=== PATIENT | male | born 1955 | race Caucasian/White ===

== ENCOUNTER 2024-09-06 02:43 | Emergency (ER) | payer OTHER ==
[2024-09-06 03:26] LABS: #Basophils 0.0 thou/uL (0.0-0.2); #Eosinophils 0.2 thou/uL (0.0-0.7); #Lymphocytes 1.6 thou/uL (1.20-3.40); #Monocytes 0.6 thou/uL (0.11-0.59); #Neutrophils 1.7 thou/uL (1.40-6.50); %Basophils 1.0 % (0.0-1.0); %Eosinophils 3.7 % (0.0-10.0); %Lymphocytes 39.8 % (21.0-51.0); %Monocytes 13.3 % (0.0-10.0); %Neutrophils 42.3 % (42.0-75.0); Hematocrit 33.9 % (42.0-52.0); Hemoglobin 10.8 g/dL (14.0-18.0); Mean Corpuscular Hemoglobin 25.4 pg (27.0-31.0); Mean Corpuscular Volume 80.0 fl (78.0-98.0); Platelet Count 179 10x3/uL (130-400); Red Blood Cell (RBC) Count 4.23 mill/uL (4.70-6.10); White Blood Cell (WBC) Count 4.1 10x3/uL (4.8-10.8)
[2024-09-06] MEDS ORDERED: Nitroglycerin 2% Ointment 1 INCH/1 GM Packet ONE (03:26)
[2024-09-06 03:44] LABS: ALT (SGPT) 11 U/L (Less than 45); AST (SGOT) 16 U/L (11-34); Albumin 3.3 g/dL (3.1-4.5); Alkaline Phosphatase 51 U/L (40-110); Anion Gap 12 mmol/L (10-20); BUN (Urea Nitrogen) 21 mg/dL (8.4-25.7); Bilirubin, Total 0.4 mg/dL (0.3-1.2); Calc. Creatinine Clearance 0 mL/min (70-130); Calcium 9.1 mg/dL (7.8-10.44); Carbon Dioxide 22 mmol/L (23-31); Chloride 107 mmol/L (98-107); Globulin 3.9 g/dL (2.4-3.5); Glucose 97 mg/dL (80-115); Potassium 3.7 mmol/L (3.5-5.1); Sodium 137 mmol/L (136-145)
[2024-09-06 03:45] LABS: Troponin I 0.011 ng/mL (< 0.028)
[2024-09-06] MEDS ORDERED: Azithromycin 500 MG VIAL ONE (06:08)
[2024-09-06] MEDS ORDERED: cefTRIAXone (ROCEPHIN) 2 GM VIAL ONE (06:08)
[2024-09-06 06:28] LABS: Glucose, Urine (Dipstick) Negative (Negative); Leukocyte Large (Negative); Protein, Urine (Dipstick) Trace mg/dL (Neg-Trace); Specific Gravity, Urine 1.015 (1.005-1.030)
[2024-09-06 06:34] LABS: Bacteria/HPF 2+ HPF (None Seen); CAUTI Indications for Culture Pelvic or flank pain; RBC/HPF 0-3 HPF (0-3); WBC/HPF Greater than 50 HPF (0-3)
[2024-09-06 06:35] LABS: Urine Culture Reflex Yes Yes
[2024-09-06 07:01] LABS: Troponin I Less than 0.010 ng/mL (< 0.028)
[2024-09-06] MEDS ORDERED: Iopamidol 370 76% 100 ML VIAL ONE (09:00)
== END 2024-09-06 08:30 | disposition short-term general hospital (02) ==
LOC: NAV ERS 02:43
DX: R07.9 Chest pain, unspecified (principal); J18.9 Pneumonia, unspecified organism; D64.9 Anemia, unspecified; N30.00 Acute cystitis without hematuria; K59.00 Constipation, unspecified; K76.0 Fatty (change of) liver, not elsewhere classified; R91.1 Solitary pulmonary nodule; I13.0 Hypertensive heart and chronic kidney disease with heart failure and stage 1 through stage 4 chronic kidney disease, or unspecified chronic kidney disease; N18.9 Chronic kidney disease, unspecified; I50.9 Heart failure, unspecified; J44.9 Chronic obstructive pulmonary disease, unspecified; I25.10 Atherosclerotic heart disease of native coronary artery without angina pectoris; I48.91 Unspecified atrial fibrillation; E78.5 Hyperlipidemia, unspecified; Z21 Asymptomatic human immunodeficiency virus [HIV] infection status; Z79.899 Other long term (current) drug therapy
CPT/HCPCS: 36415; 71045; 71275; 74174; 80053; 81001; 83880; 84484; 85025; 87077; 87086; 93005; 94760; 96365; 96367; 96374; J0456; J0696; J2270; J7050; Q9967

== ENCOUNTER 2024-11-29 00:22 | Emergency (ER) | payer OTHER ==
[2024-11-29] MEDS ORDERED: diphenhydrAMINE 50 MG/ML VIAL ONE (00:47)
[2024-11-29 00:54] LABS: #Basophils 0.0 thou/uL (0.0-0.2); #Eosinophils 0.0 thou/uL (0.0-0.7); #Lymphocytes 1.0 thou/uL (1.20-3.40); #Monocytes 0.3 thou/uL (0.11-0.59); #Neutrophils 3.5 thou/uL (1.40-6.50); %Basophils 0.4 % (0.0-1.0); %Eosinophils 0.0 % (0.0-10.0); %Lymphocytes 20.2 % (21.0-51.0); %Monocytes 6.8 % (0.0-10.0); %Neutrophils 72.5 % (42.0-75.0); Hematocrit 31.5 % (42.0-52.0); Hemoglobin 10.2 g/dL (14.0-18.0); Mean Corpuscular Hemoglobin 25.4 pg (27.0-31.0); Mean Corpuscular Volume 78.6 fl (78.0-98.0); Platelet Count 245 10x3/uL (130-400); Red Blood Cell (RBC) Count 4.00 mill/uL (4.70-6.10); White Blood Cell (WBC) Count 4.8 10x3/uL (4.8-10.8)
[2024-11-29 01:15] LABS: ALT (SGPT) 13 U/L (Less than 45); AST (SGOT) 15 U/L (11-34); Albumin 3.1 g/dL (3.1-4.5); Alkaline Phosphatase 39 U/L (40-110); Anion Gap 18 mmol/L (10-20); BUN (Urea Nitrogen) 22 mg/dL (8.4-25.7); Bilirubin, Total 0.4 mg/dL (0.3-1.2); Calc. Creatinine Clearance 0 mL/min (70-130); Calcium 8.8 mg/dL (7.8-10.44); Carbon Dioxide 18 mmol/L (23-31); Chloride 105 mmol/L (98-107); Globulin 4.1 g/dL (2.4-3.5); Glucose 107 mg/dL (80-115); Potassium 3.8 mmol/L (3.5-5.1); Sodium 137 mmol/L (136-145)
[2024-11-29 01:57] LABS: Troponin I 0.011 ng/mL (< 0.028)
[2024-11-29 04:33] LABS: Troponin I Less than 0.010 ng/mL (< 0.028)
== END 2024-11-29 05:00 ==
LOC: NAV ERS 00:22 → EEVIPCON 00:22 → NAV ERS 05:00
DX: R07.9 Chest pain, unspecified (principal); F41.9 Anxiety disorder, unspecified; J44.9 Chronic obstructive pulmonary disease, unspecified; I48.91 Unspecified atrial fibrillation; I25.10 Atherosclerotic heart disease of native coronary artery without angina pectoris; I48.92 Unspecified atrial flutter; B20 Human immunodeficiency virus [HIV] disease; Z79.01 Long term (current) use of anticoagulants; Z79.899 Other long term (current) drug therapy; Z79.51 Long term (current) use of inhaled steroids
CPT/HCPCS: 36415; 71045; 80053; 83880; 84443; 84484; 85025; 93005; 94760; 96374; J1200; J7030

== ENCOUNTER 2024-12-04 09:26 | Emergency (ER) | payer OTHER ==
[2024-12-04] MEDS ORDERED: dilTIAZem 25 MG/5 ML VIAL ONE (09:45)
[2024-12-04] MEDS ORDERED: Ketorolac Tromethamine 30 MG (1 mL) VIAL ONE (10:07)
[2024-12-04 10:10] LABS: %Lymphocytes 42.5 % (21.0-51.0); %Neutrophils 41.2 % (42.0-75.0); Hematocrit 32.2 % (42.0-52.0); Hemoglobin 10.6 g/dL (14.0-18.0); Manual Diff?? NO; Mean Corpuscular Hemoglobin 25.5 pg (27.0-31.0); Mean Corpuscular Volume 77.6 fl (78.0-98.0); Platelet Count 233 10x3/uL (130-400); Red Blood Cell (RBC) Count 4.15 mill/uL (4.70-6.10); White Blood Cell (WBC) Count 6.8 10x3/uL (4.8-10.8)
[2024-12-04 10:11] LABS: #Basophils 0.0 thou/uL (0.0-0.2); #Eosinophils 0.3 thou/uL (0.0-0.7); #Lymphocytes 2.9 thou/uL (1.20-3.40); #Monocytes 0.8 thou/uL (0.11-0.59); #Neutrophils 2.8 thou/uL (1.40-6.50); %Basophils 0.2 % (0.0-1.0); %Eosinophils 4.4 % (0.0-10.0); %Monocytes 11.7 % (0.0-10.0)
[2024-12-04 10:16] LABS: ALT (SGPT) 12 U/L (Less than 45); AST (SGOT) 18 U/L (11-34); Albumin 3.1 g/dL (3.1-4.5); Alkaline Phosphatase 41 U/L (40-110); Anion Gap 18 mmol/L (10-20); BUN (Urea Nitrogen) 16 mg/dL (8.4-25.7); Bilirubin, Total 0.4 mg/dL (0.3-1.2); Calc. Creatinine Clearance 0 mL/min (70-130); Calcium 8.8 mg/dL (7.8-10.44); Carbon Dioxide 18 mmol/L (23-31); Chloride 101 mmol/L (98-107); Globulin 4.0 g/dL (2.4-3.5); Glucose 93 mg/dL (80-115); Potassium 3.2 mmol/L (3.5-5.1); Sodium 134 mmol/L (136-145)
[2024-12-04 10:16] LABS: Bicarbonate (HCO3v) 18.9 mmol/L (22.0-28.0); CO2 Tension (PvCO2) 17.7 mmHg (42.0-51.0); Calcium, Ionized 1.09 mmol/L (1.15-1.33); Chloride 105 mmol/L (98-107); Hemoglobin - Calc 11.0 g/dL (14.0-18.0); Potassium 3.2 mmol/L (3.5-5.1); Sodium 134 mmol/L (138-145); T. Carbon Dioxide 19.4 mmol/L (22.0-28.0); vO2 Saturation-calc 92.6 % (60.0-85.0)
[2024-12-04 10:17] LABS: Troponin I 0.021 ng/mL (< 0.028)
[2024-12-04] MEDS ORDERED: Furosemide 20 MG (2 mL) VIAL ONE (10:17)
[2024-12-04] MEDS ORDERED: Digoxin 0.5 MG/2 ML AMP ONE (11:07)
[2024-12-04 11:44] LABS: Magnesium 1.7 mg/dL (1.6-2.6)
[2024-12-04 12:56] LABS: Troponin I 0.014 ng/mL (< 0.028)
== END 2024-12-04 12:40 | disposition short-term general hospital (02) ==
LOC: NAV ERS 09:26
DX: I48.91 Unspecified atrial fibrillation (principal); R07.9 Chest pain, unspecified; I50.9 Heart failure, unspecified; R06.4 Hyperventilation; B20 Human immunodeficiency virus [HIV] disease; I25.10 Atherosclerotic heart disease of native coronary artery without angina pectoris; N18.9 Chronic kidney disease, unspecified; J44.9 Chronic obstructive pulmonary disease, unspecified; Z79.51 Long term (current) use of inhaled steroids; Z79.01 Long term (current) use of anticoagulants; Z79.899 Other long term (current) drug therapy
CPT/HCPCS: 36415; 71045; 80053; 82330; 82803; 83735; 83880; 84484; 85025; 93005; 94760; 96374; 96375; J1160; J1885; J1940